=== PATIENT | male | born 1990 | race Two or more races ===

== ENCOUNTER 2018-12-31 22:13 | Inpatient (IN) | payer MEDICARE, MEDICAID ==
[~2018-12-31] VITALS: Ht 180.3 cm; Wt 110.3 kg
[2018-12-31] MEDS ORDERED: DILTIAZEM HCL 25 MG/5 ML VIAL IV ONE ×3 (22:24→22:50)
[2018-12-31 23:20] LABS: Basophils # (auto) 0.1 uL; Eosinophils # (auto) 0.2 uL; Eosinophils % (auto) 2.2 % (0.0-7.0); Monocytes # (auto) 0.9 uL
[2018-12-31 23:21] LABS: Hematocrit 30.4 % (41.0-53.0); Hemoglobin 10.2 g/dL (13.5-17.5); Lymphocytes # (auto) 1.5 uL; Lymphocytes % (auto) 13.7 % (10.0-50.0); Mean Corpuscular Hemoglobin 30.4 pg (28.0-32.0); Mean Corpuscular Hgb Conc. 33.7 g/dL (32.0-36.0); Mean Corpuscular Volume 90.2 fL (80.0-100.0); Monocytes % (auto) 8.4 % (0.0-12.0); Neutrophils # (auto) 8.2 uL; Neutrophils % (auto) 74.7 % (37.0-80.0); Platelet Count (auto) 461 10^3/uL (140-450); Red Blood Cells 3.37 10^6/uL (4.5-5.90); Red Cell Distribution Width 14.2 % (11.8-14.3); White Blood Cell 10.9 10^3/uL (4.4-10.8)
[2018-12-31 23:45] LABS: BUN/Creatinine Ratio 4.4; Calcium 8.9 mg/dL (8.5-10.1)
[2018-12-31 23:50] LABS: Bilirubin, Total 0.4 mg/dL (0.2-1.0); Total Protein 6.7 g/dL (6.4-8.2)
[2019-01-01] MEDS ORDERED: ACETAMINOPHEN 500 MG TAB PO PRN (06:30)
[2019-01-01] MEDS ORDERED: ONDANSETRON HCL 4 MG/2 ML VIAL IV PRN (06:30)
[2019-01-01] MEDS ORDERED: AMIODARONE HCL 900 MG in DEXTROSE 500 ML IV SCH (06:42)
[2019-01-01] MEDS ORDERED: AMIODARONE HCL 150 MG in D5W 5% 100 ML IV ONE (06:45)
[2019-01-01 07:43] LABS: Basophils # (auto) 0.1 uL; Basophils % (auto) 0.8 % (0.0-2.0); Eosinophils # (auto) 0.3 uL; Eosinophils % (auto) 2.7 % (0.0-7.0); Hematocrit 29.5 % (41.0-53.0); Hemoglobin 9.9 g/dL (13.5-17.5); Lymphocytes # (auto) 1.8 uL; Lymphocytes % (auto) 18.4 % (10.0-50.0); Mean Corpuscular Hemoglobin 30.3 pg (28.0-32.0); Mean Corpuscular Hgb Conc. 33.6 g/dL (32.0-36.0); Monocytes # (auto) 0.8 uL; Monocytes % (auto) 7.9 % (0.0-12.0); Neutrophils # (auto) 6.8 uL; Neutrophils % (auto) 70.2 % (37.0-80.0); Platelet Count (auto) 440 10^3/uL (140-450); Red Blood Cells 3.28 10^6/uL (4.5-5.90); Red Cell Distribution Width 14.4 % (11.8-14.3); White Blood Cell 9.7 10^3/uL (4.4-10.8)
[2019-01-01 07:57] LABS: BUN/Creatinine Ratio 4.2; Potassium 4.9 mmol/L (3.5-5.1)
[2019-01-01] MEDS: ASPirin-EC 81 mg tab PO SCH (10:30)
[2019-01-01] MEDS: NIFEdipine ER 30 MG TAB PO SCH (10:30)
[2019-01-01] MEDS ORDERED: DILTIAZEM HCL 60 MG TAB PO ONE (10:30)
[2019-01-01] MEDS: LISINOPRIL 20 MG TAB PO SCH (10:30)
[2019-01-01] MEDS ORDERED: EPOETIN ALFA 4,000 UNIT/ML VL SC SCH (12:00)
[2019-01-01] MEDS: AMIODARONE HCL 900 MG in DEXTROSE 500 ML IV SCH (12:42)
[2019-01-01] MEDS: SEVELAMER 800 MG TAB PO SCH ×2 (13:00→19:00)
[2019-01-01 13:50] LABS: Hepatitis A Ab IgM Negative; Hepatitis B Core IgM Negative; Hepatitis B Surface Antigen Negative (Negative); Hepatitis C Antibody Negative (Negative)
[2019-01-01] MEDS ORDERED: PERITONEAL DIALYSIS 2.5% SOLN 2,000 ML IP SCH (14:00)
[2019-01-01 20:30] VITALS: BP 151/76
--- NOTE | 2019-01-01 20:30 | NUR ---
Admit to [facility] CHAPMAN admitted to [facility] via WHEELCHAIR on cardiac rehabilitation program director. Patient transfered to bed, connected to unit monitoring, and weighed by bedscale. Patient oriented to RADHA DOWNS,primary RN, unit, room, bed, and unit policies regarding patient care and visiting hours. Brother at bedside. All questions and concerns addressed, patient verbalized understanding.
--- NOTE | 2019-01-01 21:50 | NUR ---
PATIENT REFUSING TO START DIALYSIS BECAUSE THERE ARE NO EXTRA MINI CAPS. PATIENT CALLS BROTHER (ABLE) TO BRING BACK PERITONEAL DIALYSIS MATERIALS FROM HOME. Addendum: 01/02/19 at 7760 by RADHA DOWNS RN RN ANTONETTE
[2019-01-01 22:00] LABS: % Iron Saturation 28.5 % (20-55)
[2019-01-01] MEDS: HEPARIN SODIUM (PORCINE) 5000 UNITS/ML 1ML VIAL SC SCH (22:00)
--- NOTE | 2019-01-01 22:20 | NUR ---
IV INSERTION CURRENT LEFT FOREARM IV REMOVED DUE TO INFILTRATION, CATHETER FULLY INTACT. INSERTED NEW IV IN THE LEFT HAND 20G, DRESSING IS CLEAN/DRY/INTACT. PATIENT TOLERATED WELL.
--- NOTE | 2019-01-01 23:15 | NUR ---
REAGAN (BROTHER) CAME BACK WITH PERITONEAL DIALYSIS MATERIALS FROM HOME. Addendum: 01/02/19 at 0409 by RADHA DOWNS RN RN ANTONETTE
[2019-01-02] VITALS: BP 153/84
--- NOTE | 2019-01-02 00:20 | NUR ---
PATIENT PERFORMED DIALYSIS ON SELF. BROTHER AT BED SIDE. NO SIGNS OR SYMPTOMS OF SOB, PAIN OR DISTRESS. CURRENTLY ON ROOM AIR, 02 SAT - 98%. BED IN LOWEST POSITION, SIDE RAILS UP X2, CALL LIGHT WITHIN REACH. WILL CONTINUE TO MONITOR.
--- NOTE | 2019-01-02 02:45 | NUR ---
ASSISTED PATIENT WITH PERITONEAL DIALYSIS. PATIENT TOLERATED WELL. NO SIGNS OR SYMPTOMS OF SOB, PAIN OR I DISTRESS. WILL CONTINUE TO MONITOR.
--- NOTE | 2019-01-02 05:15 | NUR ---
MORNING CARE PATIENT PERFORMED MORNING CARE WITH CHG WIPES AND WASH CLOTH TO THE FACE. PARTIAL LINEN CHANGE AND GOWN CHANGED. NO SIGNS OR SYMPTOMS OF SOB, PAIN OR DISTRESS. REPOSITIONED FOR COMFORT.
[2019-01-02 06:27] LABS: Basophils # (auto) 0.1 uL; Eosinophils # (auto) 0.3 uL; Hemoglobin 9.6 g/dL (13.5-17.5); Lymphocytes # (auto) 1.5 uL; Lymphocytes % (auto) 15.5 % (10.0-50.0); Monocytes # (auto) 0.6 uL
[2019-01-02 06:33] LABS: Basophils % (auto) 0.9 % (0.0-2.0); Eosinophils % (auto) 3.1 % (0.0-7.0); Hematocrit 28.2 % (41.0-53.0); Mean Corpuscular Hemoglobin 30.6 pg (28.0-32.0); Mean Corpuscular Hgb Conc. 34.1 g/dL (32.0-36.0); Mean Corpuscular Volume 89.7 fL (80.0-100.0); Monocytes % (auto) 6.7 % (0.0-12.0); Neutrophils # (auto) 7.1 uL; Neutrophils % (auto) 73.8 % (37.0-80.0); Nucleated Red Blood Cells % 0.1 %; Platelet Count (auto) 449 10^3/uL (140-450); Red Blood Cells 3.14 10^6/uL (4.5-5.90); Red Cell Distribution Width 14.2 % (11.8-14.3); White Blood Cell 9.6 10^3/uL (4.4-10.8)
[2019-01-02 06:40] LABS: BUN/Creatinine Ratio 4.4; Calcium 8.9 mg/dL (8.5-10.1); Magnesium 2.6 mg/dL (1.6-2.6); Potassium 5.1 mmol/L (3.5-5.1)
--- NOTE | 2019-01-02 07:05 | NUR ---
END OF SHIFT PATIENT IN BED RESTING WITH NO SIGNS OR SYMPTOMS OF SOB, PAIN OR DISTRESS. CURRENTLY ON ROOM AIR, 02 SAT - 98%. BED IN LOWEST POSITION, SIDE RAILS UP X2, CALL LIGHT WITHIN REACH. WILL ENDORSE CARE TO DAY SHIFT RN.
--- NOTE | 2019-01-02 07:44 | NUR ---
Opening Shift Note Assumed care of patient@ 0730, awake and alert. No S/S of distress/SOB or pain. Amiodarone drip running @ 16.66ml/hr, A-flutter, HR 80's. PD access on LT lower abdomen, dressing dry and intact. See interventions for complete assessment. Bed locked on low position, side rails up x2, bed alarms on at all times, call chung within reach, instructed on POC and to call for assist PRN, will continue to monitor for changes Q1hr and PRN.
[2019-01-02 07:45] VITALS: BP 149/97
--- NOTE | 2019-01-02 07:45 | NUR ---
IV insertion IV access obtained by Richard ESCOBAR, via clean sterile technique by inserting 20 gauge catheter at RT forearm after one attempt. IV secured properly. No trauma to site. Patient tolerated procedure well.
[2019-01-02] MEDS: SEVELAMER 800 MG TAB PO SCH ×3 (08:00→17:05)
[2019-01-02] MEDS ORDERED: ADENOSINE 90 MG in GIVE UN-DILUTED 0 ML IV STA (08:29)
--- NOTE | 2019-01-02 09:15 | NUR ---
Dr Harding at bedside, updated on patient's status. Patient seen and examined. Per Dr Harding patient may bring and use own PD machine.
--- NOTE | 2019-01-02 11:00 | NUR ---
PO meds held, patient for Cardiolyte Stress Test and possible CHRIS guided cardioversion/ablation today.
--- NOTE | 2019-01-02 11:00 | NUR ---
Peritoneal dialysis not done, awaiting for family to bring supplies. Patient refused to use available supplies in the hospital, patient states "We don't want to start using things we don't use at home. They will bring some later."
--- NOTE | 2019-01-02 11:03 | NUR ---
Dr Morrissey at bedside, updated on patient's status. Patient seen and examined. Received verbal order to move patient to Tele. Patient on Amiodarone drip, awaiting Dr Juarez.
[2019-01-02] MEDS: HEPARIN SODIUM (PORCINE) 5000 UNITS/ML 1ML VIAL SC SCH ×2 (11:25→22:08)
[2019-01-02 11:45] VITALS: BP 155/100
--- NOTE | 2019-01-02 13:19 | NUR ---
Patient out of room to Nuclear Med. Addendum: 01/02/19 at 1326 by Shelbi Hernandez RN wrong patient
--- NOTE | 2019-01-02 14:00 | NUR ---
Peritoneal dialysis not done, awaiting for family to bring supplies and machine. Paged Dr Harding to inform of situation, awaiting call back.
--- NOTE | 2019-01-02 14:30 | NUR ---
Peritoneal dialysis supplies and machine brought to bedside from home. Patient and family refused to do it at this time. Per patient he only does it once at night with the machine. Will inform Dr Harding.
--- NOTE | 2019-01-02 14:40 | NUR ---
Patient out of room to Nuclear Medicine.
--- NOTE | 2019-01-02 15:15 | NUR ---
Patient back to room from [facility].
--- NOTE | 2019-01-02 15:27 | NUR ---
Spoke to Dr Harding over the phone, informed patient is refusing to do peritoneal dialysis every four hours as ordered because they wanted to do it every night only the way it was being done at home. Received instruction to let patient do PD as per home routine and received telephone order to discontinue ordered peritoneal dialysis every four hours. Telephone orders read back and verified. Will carry out.
[2019-01-02 15:50] VITALS: BP 148/104
[2019-01-02] MEDS: ASPirin-EC 81 mg tab PO SCH (15:52)
[2019-01-02] MEDS: NIFEdipine ER 30 MG TAB PO SCH (15:52)
[2019-01-02] MEDS: LISINOPRIL 20 MG TAB PO SCH (15:53)
--- NOTE | 2019-01-02 16:35 | NUR ---
Patient converted from A-flutter to sinus rhythm, HR 80's. Will continue to monitor.
--- NOTE | 2019-01-02 17:25 | NUR ---
Dr Juarez at bedside, updated on patient's status. Informed Cardiolyte Stress Test was not completed because patient on Amio drip. Aware patient already converted sinus rhythm, HR 80's. Received verbal order to start patient on Amiodarone PO and discontinue Amiodarone drip at 2200. Verbal order read back and verified. Will carry out.
--- NOTE | 2019-01-02 17:56 | NUR ---
EKG done, sinus rhythm, updated Dr Juarez over the phone.
[2019-01-02] MEDS ORDERED: AMIODARONE HCL 200 MG TAB PO ONE (18:00)
--- NOTE | 2019-01-02 19:30 | NUR ---
OPEN Assumed care of pt resting in bed with brother at bed side. Alert and oriented times four. Amiodarone drip running at 16.66 mls/hr. NSR on bedside monitor. Per report, pt converted from a flutter today around 1630. Orders to stop amiodarone drip at 2200. On room air with no s/s of distress. PD access to left lower abdomen, dressing CDI. Pt's brother here to help pt with peritoneal dialysis. Full assessment done, see interventions. Pt states he is not in any pain at this time. Call light within reach, bed locked x2 and in lowest position. Pt verbalized understanding to call for assist PRN. Pt in full view of RN.
[2019-01-02 19:45] VITALS: BP 154/98
--- NOTE | 2019-01-02 21:30 | NUR ---
PT STATES HE DOESN'T NEED ANY ASSISTANCE WITH PERITONEAL DIALYSIS AND HIS BROTHER IS HERE TO HELP HIM.
--- NOTE | 2019-01-02 22:00 | NUR ---
Amiodarone drip stopped per md request.
[2019-01-03] VITALS: BP 147/99
--- NOTE | 2019-01-03 03:00 | NUR ---
ROUNDS PT SLEEPING SOUNDLY. NO S/S OF DISTRESS NOTED. WILL CONTINUE TO MONITOR.
[2019-01-03 06:18] LABS: Basophils # (auto) 0.1 uL; Basophils % (auto) 0.8 % (0.0-2.0); Eosinophils # (auto) 0.3 uL; Eosinophils % (auto) 3.5 % (0.0-7.0); Hematocrit 27.2 % (41.0-53.0); Hemoglobin 9.3 g/dL (13.5-17.5); Lymphocytes # (auto) 1.3 uL; Lymphocytes % (auto) 12.8 % (10.0-50.0); Mean Corpuscular Hemoglobin 30.5 pg (28.0-32.0); Mean Corpuscular Hgb Conc. 34.2 g/dL (32.0-36.0); Monocytes # (auto) 0.7 uL; Monocytes % (auto) 7.4 % (0.0-12.0); Neutrophils # (auto) 7.6 uL; Neutrophils % (auto) 75.5 % (37.0-80.0); Platelet Count (auto) 430 10^3/uL (140-450); Red Blood Cells 3.06 10^6/uL (4.5-5.90); Red Cell Distribution Width 14.5 % (11.8-14.3); White Blood Cell 10.1 10^3/uL (4.4-10.8)
[2019-01-03 06:32] LABS: Potassium 4.5 mmol/L (3.5-5.1)
[2019-01-03 06:40] LABS: BUN/Creatinine Ratio 4.4; Calcium 9.1 mg/dL (8.5-10.1); Phosphorus 7.9 mg/dL (2.5-4.90)
--- NOTE | 2019-01-03 07:27 | NUR ---
End of Shift Report given to LUZ Natarajan to assume care.
--- NOTE | 2019-01-03 07:45 | NUR ---
Opening Shift Note Assumed care of patient, awake and alert. No S/S of distress/SOB or pain. Patient A&Ox4. Patient on room air saturation at 95%. IV left hand 18G and right forearm 20G saline locked, patent, clean, dry, and intact. Bed in the lowest position, side rails up x2, call light with in reach. Instructed on POC and to call for assist PRN. Will continue to monitor.
[2019-01-03 08:00] VITALS: BP 142/91
[2019-01-03] MEDS: SEVELAMER 800 MG TAB PO SCH ×2 (08:00→12:49)
--- NOTE | 2019-01-03 08:30 | NUR ---
Dr. Harding and Dr. Juarez at bedside. Dr. Juarez said ok to discharge patient today. Discharge patient on Eliquis 2.5mg BID and Amiodarone 200mg BID.
--- NOTE | 2019-01-03 09:17 | NUR ---
PATIENT TRANSPORTED VIA WHEELCHAIR TO RADIOLOGY DEPARTMENT FOR 2ND HALF OF STRESS TEST WITH RN AND TECH. CONNECTED TO PORTABLE MONITOR. PATIENT STABLE AT TIME OF TRANSPORT
[2019-01-03] MEDS ORDERED: AMIODARONE HCL 200 MG TAB PO SCH (10:00)
[2019-01-03] MEDS ORDERED: EPOETIN ALFA 4,000 UNIT/ML VL SC SCH (10:00)
[2019-01-03] MEDS: AMIODARONE HCL 900 MG in DEXTROSE 500 ML IV SCH ×2 (10:08→12:42)
[2019-01-03] MEDS: ASPirin-EC 81 mg tab PO SCH (10:21)
[2019-01-03] MEDS: LISINOPRIL 20 MG TAB PO SCH (10:22)
[2019-01-03] MEDS: NIFEdipine ER 30 MG TAB PO SCH (10:23)
[2019-01-03] MEDS: HEPARIN SODIUM (PORCINE) 5000 UNITS/ML 1ML VIAL SC SCH (10:24)
[2019-01-03 11:45] VITALS: BP 149/88
--- NOTE | 2019-01-03 12:00 | NUR ---
Dr. Morrissey at bedside. Ok to discharge home today.
[2019-01-03 13:16] VITALS: BP 149/88
--- NOTE | 2019-01-03 14:00 | NUR ---
Patient discharged. Both IV's left hand and right forearm removed, catheter intact, pressure dressing placed. Discharge paperwork signed and given to patient. Patient instructed on S/S to return or see PMD. All belongings placed in bags and given to family. Patient wheeled out by Valentina YAÑEZ.
== END 2019-01-03 14:12 | disposition home or self-care (01) | DRG 308 ==
LOC: EDBD 22:13 → ER 22:24 → OVERFLOW 01-01 06:34 → DOU IN ICU 01-01 20:30
PROVIDERS: ADMIT Nurse Practitioner Family; ATTEND Internal Medicine
DX: I48.91 Unspecified atrial fibrillation (principal); N18.6 End stage renal disease; I13.2 Hypertensive heart and chronic kidney disease with heart failure and with stage 5 chronic kidney disease, or end stage renal disease; N25.81 Secondary hyperparathyroidism of renal origin; I48.92 Unspecified atrial flutter; I47.1 Supraventricular tachycardia; D63.1 Anemia in chronic kidney disease; E10.22 Type 1 diabetes mellitus with diabetic chronic kidney disease; E66.9 Obesity, unspecified; Z68.33 Body mass index [BMI] 33.0-33.9, adult; K72.90 Hepatic failure, unspecified without coma; Z76.82 Awaiting organ transplant status; Z82.49 Family history of ischemic heart disease and other diseases of the circulatory system; Z91.19 Patient's noncompliance with other medical treatment and regimen; Z99.2 Dependence on renal dialysis
CPT/HCPCS: 36415; 71045; 78452; 80048; 80053; 80074; 82728; 82962; 83540; 83550; 83735; 83880; 84100; 84443; 84484; 85025; 87081; 93005; 93017; 93306; 94761; 96365; 96375; G0378; J0153; J7060

== ENCOUNTER 2021-08-17 11:30 | Emergency (ER) | payer MEDICARE, MEDICAID ==
[~2021-08-17] VITALS: Ht 180.3 cm; Wt 81.6 kg
[2021-08-17 12:12] LABS: Basophils # (auto) 0.1 10 ^3/uL (0-0.2); Eosinophils # (auto) 0.4 10 ^3/uL (0-0.8); Hematocrit 38.9 % (41.0-53.0); Hemoglobin 13.6 g/dL (13.5-17.5); Mean Corpuscular Hemoglobin 32.1 pg (28.0-32.0); Monocytes # (auto) 0.9 10 ^3/uL (0-1.3); Nucleated Red Blood Cells % 0.1 %; White Blood Cell 10.3 10^3/uL (4.4-10.8)
[2021-08-17 12:14] LABS: Basophils % (auto) 0.8 % (0.0-2.0); Eosinophils % (auto) 3.9 % (0.0-7.0); Lymphocytes # (auto) 0.4 10 ^3/uL (0.4-5.4); Lymphocytes % (auto) 3.9 % (10.0-50.0); Mean Corpuscular Volume 91.8 fL (80.0-100.0); Monocytes % (auto) 8.9 % (0.0-12.0); Neutrophils # (auto) 8.5 10 ^3/uL (1.6-8.6); Neutrophils % (auto) 82.5 % (37.0-80.0); Red Blood Cells 4.23 10^6/uL (4.5-5.90); Red Cell Distribution Width 14.1 % (11.8-14.3)
[2021-08-17 12:35] LABS: Albumin 2.5 g/dL (3.4-5.0); Calcium 9.2 mg/dL (8.5-10.1); Potassium 4.3 mmol/L (3.5-5.1)
[2021-08-17 12:49] LABS: BUN/Creatinine Ratio 3.7; Bilirubin, Total 0.5 mg/dL (0.2-1.0); Total Protein 6.3 g/dL (6.4-8.2)
[2021-08-17 14:19] VITALS: BP 132/92
== END 2021-08-17 14:57 | disposition home or self-care (01) ==
LOC: ER 11:30 → EDBD 11:30 → ER 14:57
DX: R42 Dizziness and giddiness (principal); R79.1 Abnormal coagulation profile; R91.8 Other nonspecific abnormal finding of lung field; I12.0 Hypertensive chronic kidney disease with stage 5 chronic kidney disease or end stage renal disease; N18.6 End stage renal disease; Z20.822 Contact with and (suspected) exposure to COVID-19
CPT/HCPCS: 36415; 70450; 71045; 80053; 83880; 85025; 85379; 87426; 93005

== ENCOUNTER 2021-11-02 03:16 | Inpatient (IN) | payer MEDICARE, MEDICAID ==
[~2021-11-02] VITALS: Ht 180.3 cm; Wt 72.6 kg
[2021-11-02] MEDS ORDERED: ASPirin 325 MG TAB PO ONE (04:00)
[2021-11-02] MEDS ORDERED: ENOXAPARIN SOD 80 MG/0.8ML SYRINGE SC ONE (04:00)
[2021-11-02] MEDS: METOPROLOL TARTRATE 1MG/1ML-5ML VIAL IV SCH ×2 (04:26→07:33)
[2021-11-02 04:48] LABS: Basophils # (auto) 0.2 10 ^3/uL (0-0.2); Eosinophils # (auto) 0.3 10 ^3/uL (0-0.8); Eosinophils % (auto) 1.9 % (0.0-7.0); Lymphocytes # (auto) 1.9 10 ^3/uL (0.4-5.4); Lymphocytes % (auto) 11.3 % (10.0-50.0); Neutrophils # (auto) 13.3 10 ^3/uL (1.6-8.6)
[2021-11-02 04:51] LABS: Basophils % (auto) 1.1 % (0.0-2.0); Hemoglobin 12.4 g/dL (13.5-17.5); Mean Corpuscular Hemoglobin 32.5 pg (28.0-32.0); Mean Corpuscular Hgb Conc. 35.3 g/dL (32.0-36.0); Mean Corpuscular Volume 92.2 fL (80.0-100.0); Monocytes # (auto) 1.3 10 ^3/uL (0-1.3); Monocytes % (auto) 7.6 % (0.0-12.0); Neutrophils % (auto) 78.1 % (37.0-80.0); Nucleated Red Blood Cells % 0.1 %; Red Cell Distribution Width 14.4 % (11.8-14.3)
[2021-11-02 04:59] LABS: Potassium 4.8 mmol/L (3.5-5.1)
[2021-11-02 05:04] LABS: Albumin 3.3 g/dL (3.4-5.0); BUN/Creatinine Ratio 3.9; Calcium 10.1 mg/dL (8.5-10.1)
[2021-11-02 05:07] LABS: INR 0.99 (0.9-1.15); Partial Thromboplastin Time 27.3 sec (23.6-33.0)
[2021-11-02 05:08] LABS: Bilirubin, Total 0.4 mg/dL (0.2-1.0); Total Protein 7.4 g/dL (6.4-8.2)
[2021-11-02] MEDS ORDERED: MORPHINE SULFATE 4 MG/ML SYR/VIAL IV ONE (06:00)
[2021-11-02] MEDS ORDERED: MORPHINE SULFATE INJECTION 2 MG/ML SYRG IV PRN (07:00)
[2021-11-02] MEDS ORDERED: MORPHINE SULFATE 4 MG/ML SYR/VIAL IV PRN (07:00)
[2021-11-02] MEDS ORDERED: ACETAMINOPHEN 325 MG TAB PO PRN (07:00)
[2021-11-02] MEDS ORDERED: NITROGLYCERIN 0.4 MG SL TAB SL PRN ×2 (07:00)
[2021-11-02] MEDS ORDERED: CLOPIDOGREL 300 MG TAB PO ONE (07:00)
[2021-11-02] MEDS ORDERED: ONDANSETRON HCL 4 MG/2 ML VIAL IV PRN (07:00)
[2021-11-02] MEDS ORDERED: ATORVASTATIN 20 MG TAB PO ONE (07:00)
[2021-11-02] MEDS ORDERED: CEFTRIAXONE SODIUM 2 GM in D5W 5% 50 ML IV SCH (07:32)
[2021-11-02 08:40] LABS: INR 1.04 (0.9-1.15)
[2021-11-02] MEDS ORDERED: MIDAZOLAM DRIP 50 mg/50mL 50 ML IV ONE (09:41)
[2021-11-02] MEDS ORDERED: fentaNYL Drip 2500mCg/250mlNS 250 ML IV SCH (09:45)
[2021-11-02] MEDS ORDERED: CEFEPIME 2 GM in SODIUM CHL 0.9% 50 ML IV ONE (09:45)
[2021-11-02] MEDS ORDERED: NOREPINEPHRINE 8 MG/250ML KIT 250 ML IV SCH (09:45)
[2021-11-02] MEDS ORDERED: MIDAZOLAM DRIP 50 mg/50mL 50 ML IV SCH ×2 (09:45→20:45)
[2021-11-02] MEDS ORDERED: CARVEDILOL 3.125 MG TAB PO SCH (10:00)
[2021-11-02] MEDS ORDERED: PANTOPRAZOLE 40 MG TAB PO SCH (10:00)
[2021-11-02 10:10] VITALS: BP 104/68
[2021-11-02] MEDS ORDERED: SODIUM CHL 0.9% 1000 ML BAG XX ONE (10:45)
[2021-11-02 10:52] LABS: Basophils # (auto) 0.1 10 ^3/uL (0-0.2); Basophils % (auto) 0.4 % (0.0-2.0); Eosinophils # (auto) 0 10 ^3/uL (0-0.8); Eosinophils % (auto) 0.3 % (0.0-7.0); Hematocrit 20.9 % (41.0-53.0); Lymphocytes # (auto) 1.4 10 ^3/uL (0.4-5.4); Lymphocytes % (auto) 9.4 % (10.0-50.0); Mean Corpuscular Hemoglobin 31.4 pg (28.0-32.0); Mean Corpuscular Hgb Conc. 33.3 g/dL (32.0-36.0); Mean Corpuscular Volume 94.2 fL (80.0-100.0); Monocytes # (auto) 0.4 10 ^3/uL (0-1.3); Neutrophils # (auto) 12.8 10 ^3/uL (1.6-8.6); Neutrophils % (auto) 86.9 % (37.0-80.0); Nucleated Red Blood Cells % 0.1 %; Red Blood Cells 2.22 10^6/uL (4.5-5.90); Red Cell Distribution Width 14.4 % (11.8-14.3); White Blood Cell 14.7 10^3/uL (4.4-10.8)
[2021-11-02 12:06] LABS: BUN/Creatinine Ratio 4.6; Calcium 6.4 mg/dL (8.5-10.1); Potassium 3.4 mmol/L (3.5-5.1)
[2021-11-02] MEDS ORDERED: CALCIUM CHLOR(10%) 100MG/ML 10ML SYRINGE IV ONE (12:52)
[2021-11-02] MEDS ORDERED: DOPamine 1600mCg/ml 400MG/250ml NSorD5 KIT/BAG IV ONE (12:52)
[2021-11-02] MEDS ORDERED: ATROPINE SULF 1 MG/10ml SYR IM ONE (12:52)
[2021-11-02] MEDS ORDERED: EPINEPHrine HCL 1 MG/10 ML SYRG IV ONE ×2 (12:52→16:50)
[2021-11-02] MEDS ORDERED: SODIUM BICARBONATE 8.4% INJ 50ML SYRINGE IV ONE ×2 (12:52→16:50)
[2021-11-02] MEDS ORDERED: HEPARIN SODIUM (PORCINE) 5000 UNITS/ML 1ML VIAL SC SCH (14:00)
[2021-11-02 15:14] LABS: Calcium 10.4 mg/dL (8.5-10.1); Magnesium 3.2 mg/dL (1.6-2.6)
[2021-11-02] MEDS ORDERED: DEXTROSE (50%) 50ML SYRG IV ONE (16:50)
[2021-11-02] MEDS ORDERED: DOPamine 1600MCG/ML D5W 250 ML IV SCH (20:45)
[2021-11-02] MEDS ORDERED: ATORVASTATIN 20 MG TAB PO SCH (22:00)
[2021-11-03] MEDS ORDERED: ASPirin 81 mg TAB PO SCH (10:00)
[2021-11-03] MEDS ORDERED: PANTOPRAZOLE 40 MG/10 ML VIAL INJ IV SCH (10:00)
[2021-11-03] MEDS ORDERED: CEFEPIME 1 GM in SODIUM CHL 0.9% 50 ML IV SCH (10:00)
[2021-11-03] MEDS ORDERED: CLOPIDOGREL BISULFATE 75 MG TAB PO SCH (10:00)
[2021-11-03] MEDS ORDERED: ATORVASTATIN 20 MG TAB PO SCH (22:00)
== END 2021-11-02 18:29 ==
LOC: ER 03:16 → EDUNIT# 03:16 → EDBD 03:16 → TELE 06:49 → TELE-CENTR 08:52 → ICU WEST 10:11
PROVIDERS: ADMIT Internal Medicine; ATTEND Internal Medicine
PROC: 5A12012 Performance of Cardiac Output, Single, Manual (ICD-10-PCS; principal; 2021-11-02)
PROC: 5A1D70Z Performance of Urinary Filtration, Intermittent, Less than 6 Hours Per Day (ICD-10-PCS; 2021-11-02)
DX: I21.4 Non-ST elevation (NSTEMI) myocardial infarction (principal); N18.6 End stage renal disease; I50.41 Acute combined systolic (congestive) and diastolic (congestive) heart failure; J96.00 Acute respiratory failure, unspecified whether with hypoxia or hypercapnia; E87.1 Hypo-osmolality and hyponatremia; I13.2 Hypertensive heart and chronic kidney disease with heart failure and with stage 5 chronic kidney disease, or end stage renal disease; I46.9 Cardiac arrest, cause unspecified; R57.0 Cardiogenic shock; N26.1 Atrophy of kidney (terminal); D72.829 Elevated white blood cell count, unspecified; E78.5 Hyperlipidemia, unspecified; R79.89 Other specified abnormal findings of blood chemistry; Z20.822 Contact with and (suspected) exposure to COVID-19; I49.01 Ventricular fibrillation; E87.5 Hyperkalemia; I45.9 Conduction disorder, unspecified; I48.0 Paroxysmal atrial fibrillation; Z99.2 Dependence on renal dialysis; I25.2 Old myocardial infarction
CPT/HCPCS: 36415; 36600; 71045; 74176; 80048; 80053; 82805; 83735; 83880; 84484; 85025; 85379; 85610; 85730; 87040; 92950; 93005; 94002; 96372; 99291; G0378; J0696; J2250; J7060